=== PATIENT | male | born 1945 | race Caucasian/White ===

== ENCOUNTER 2021-02-17 14:16 | Inpatient (IN) | payer MEDICARE, SELFPAY, OTHER ==
[2021-02-17] MEDS ORDERED: ARICEPT 5MG TABL5 MG PO (15:27)
[2021-02-17] MEDS ORDERED: DEPO-PROVE150 MG/11 IM (15:28)
[2021-02-17 16:16] LABS: BILIRUBIN NEGATIVE (NEGATIVE); BLOOD TRACE-INTACT Ery/uL (NEGATIVE); CLARITY CLEAR (CLEAR); COLOR YELLOW (YELLOW); GLUCOSE (U) NORMAL (NORMAL); LEUKOCYTES NEGATIVE Leu/uL (NEGATIVE); NITRITE NEGATIVE (NEGATIVE); PROTEIN NEGATIVE (NEGATIVE); UROBILINOGEN 0.2 mg/dL (0.2-1.0)
[2021-02-17 16:27] LABS: CALCIUM OXALATE CRYSTALS TRACE; URINARY RBC RARE
[2021-02-17 16:40] LABS: BASOPHIL 0.3 % (0-2); EOSINOPHIL 0.1 % (0-7); HCT 46.5 % (42.0-52.0); HGB 16.6 g/dl (13.2-18.0); LYMPHOCYTE 3.8 % (15-48); MCH 31.4 pg (25.0-31.0); MCHC 35.7 g/dL (32.0-36.0); MCV 88.1 fL (78.0-100.0); MONOCYTE 9.1 % (0-12); NEUTROPHIL 86.2 % (41-80); NRBC 0; PLT 181 K/uL (150-400); RBC 5.28 M/uL (4.70-6.00); RDW 12.9 % (11.5-14.0); WBC 19.6 K/uL (4.0-10.5)
[2021-02-17 16:54] LABS: ALBUMIN 3.7 g/dL (3.4-5.0); BILIRUBIN - TOTAL 1.3 mg/dL (0.2-1.0); BUN/CREAT RATIO (CALC) 15.7 RATIO; CREATININE 0.7 mg/dL (0.67-1.17); GLOBULIN (CALCULATION) 3.5 g/dL; MAGNESIUM 1.7 mg/dL (1.8-2.4); TOTAL PROTEIN 7.2 g/dL (6.4-8.2)
[2021-02-18 07:26] LABS: BASOPHIL 0.6 % (0-2); EOSINOPHIL 1.8 % (0-7); HCT 48.8 % (42.0-52.0); HGB 16.8 g/dl (13.2-18.0); LYMPHOCYTE 10.9 % (15-48); MCH 30.9 pg (25.0-31.0); MCHC 34.4 g/dL (32.0-36.0); MCV 89.9 fL (78.0-100.0); MPV 12.4 fL (6.0-9.5); NEUTROPHIL 76.3 % (41-80); NRBC 0; PLT 142 K/uL (150-400); RBC 5.43 M/uL (4.70-6.00); RDW 13.2 % (11.5-14.0); WBC 14.3 K/uL (4.0-10.5)
[2021-02-18 07:38] LABS: BUN/CREAT RATIO (CALC) 16.7 RATIO; CREATININE 0.66 mg/dL (0.67-1.17)
[2021-02-18 07:41] LABS: INR 1.15 (0.9-1.2); PTT 33.1 SECONDS (22.2-34.7)
--- NOTE | 2021-02-18 15:21 | NUR ---
SPOKE WITH JAN BEDSPREAD INSPECTOR AND PADMINI - GRAVEL HAULER THIS DATE. ADVISED THAT PT IS HAVING SURGERY THIS DATE. PT RESIDES IN ASSISTED LIVING AT THE [facility] REQUESTED A BED IN THE PRISON. PER JAN AND PURVI - PT HAS SOME LEGAL ISSUES THAT MAY PREVENT HIM FROM BEING AROUND SOMEONE WHO IS UNDER THE AGE OF 18. JAN STATED THAT WE CAN SEND INFORMATION REGARDING THE REFERRAL AND THEY WILL CONSIDER THE REFERRAL. [facility] PHONE NUMBER IS [phone] FAX NUMBER IS [phone].
[2021-02-19 06:15] LABS: BASOPHIL 0.3 % (0-2); EOSINOPHIL 0 % (0-7); HCT 39.2 % (42.0-52.0); HGB 13.5 g/dl (13.2-18.0); LYMPHOCYTE 4.8 % (15-48); MCH 31.3 pg (25.0-31.0); MCHC 34.4 g/dL (32.0-36.0); MCV 90.7 fL (78.0-100.0); MONOCYTE 8.7 % (0-12); MPV 12.9 fL (6.0-9.5); NEUTROPHIL 85.1 % (41-80); NRBC 0; PLT 189 K/uL (150-400); RBC 4.32 M/uL (4.70-6.00); RDW 13.2 % (11.5-14.0)
[2021-02-19 06:30] LABS: WBC 30.3 K/uL (4.0-10.5)
[2021-02-19 06:42] LABS: BUN/CREAT RATIO (CALC) 17.7 RATIO; CREATININE 1.13 mg/dL (0.67-1.17); POTASSIUM 4.5 mmol/L (3.5-5.1)
--- NOTE | 2021-02-19 12:13 | NUR ---
MD NOTIFIED OF ELEVATED HR BETWEEN 105-120. PATIENT STATES NO PAIN EKG ORDERED. MD STATES NO TELE AT THIS TIME
--- NOTE | 2021-02-19 13:36 | NUR ---
02/19/21 Clinicals have been faxed to [facility].
--- NOTE | 2021-02-19 13:50 | NUR ---
MD NOTIFIED OF EKG RESULTS SINUS TACHY. PERCOCET 5/325 MG TAB PO GIVEN. PT UP IN CHAIR AT THIS TIME. MD NOTIFIED HR ELEVATED STILL, CBC ORDERED
[2021-02-19 14:12] LABS: HCT 36.4 % (42.0-52.0); HGB 12.3 g/dl (13.2-18.0); MCH 30.7 pg (25.0-31.0); MCHC 33.8 g/dL (32.0-36.0); MCV 90.8 fL (78.0-100.0); MPV 12.6 fL (6.0-9.5); RBC 4.01 M/uL (4.70-6.00); RDW 13.1 % (11.5-14.0); WBC 19.6 K/uL (4.0-10.5)
--- NOTE | 2021-02-19 16:21 | NUR ---
PT ASSISTED AND PIVOTED UP TO CHAIR 2 ASSIST. PT DENIES PAIN, YET RESTLESS, SQUIRMING, HR SLIGHTLY ELEVATED, GRIMACING. MORPHINE IV GIVEN AFTER PATIENT PLACED BACK IN BED, RESTING.
[2021-02-20 03:54] LABS: BASOPHIL 0.5 % (0-2); EOSINOPHIL 5.8 % (0-7); HCT 31.3 % (42.0-52.0); LYMPHOCYTE 11.7 % (15-48); MCH 31.4 pg (25.0-31.0); MCHC 35.1 g/dL (32.0-36.0); MCV 89.4 fL (78.0-100.0); MONOCYTE 10.5 % (0-12); MPV 12.5 fL (6.0-9.5); NRBC 0; PLT 133 K/uL (150-400); WBC 12.8 K/uL (4.0-10.5)
[2021-02-20 04:14] LABS: BUN/CREAT RATIO (CALC) 22.9 RATIO; CREATININE 0.7 mg/dL (0.67-1.17); POTASSIUM 3.6 mmol/L (3.5-5.1)
--- NOTE | 2021-02-20 21:11 | NUR ---
PT PULLED OUT SECOND IV TODAY. SPOKE WITH HOSPITALIST LETTY WHO STATED IT WAS OKAY TO LEAVE OUT PT'S IV AT THIS TIME.
--- NOTE | 2021-02-21 03:29 | NUR ---
PT HAS NOT VOIDED SINCE [employer] REMOVAL. RECEIVED ORDERS TO BLADDER SCAN PT AND STRAIGHT CATH. BLADDER SCAN SHOWED AMOUNT OF 426ML. STRAIGHT CATHED PT AND HAD AN OUTPUT OF 350ML. HOSPITALIST LETTY NOTIFIED
[2021-02-22 06:01] LABS: BASOPHIL 0.5 % (0-2); EOSINOPHIL 5.4 % (0-7); HCT 30.3 % (42.0-52.0); HGB 10.8 g/dl (13.2-18.0); LYMPHOCYTE 12.6 % (15-48); MCH 31.4 pg (25.0-31.0); MCHC 35.6 g/dL (32.0-36.0); MCV 88.1 fL (78.0-100.0); MONOCYTE 11.8 % (0-12); MPV 11.7 fL (6.0-9.5); NEUTROPHIL 68.8 % (41-80); NRBC 0; PLT 189 K/uL (150-400); RBC 3.44 M/uL (4.70-6.00); RDW 12.9 % (11.5-14.0); WBC 8.9 K/uL (4.0-10.5)
[2021-02-22 06:15] LABS: CREATININE 0.61 mg/dL (0.67-1.17)
--- NOTE | 2021-02-22 09:30 | NUR ---
02/22/21 [facility], will accept Mr. Ford today per Tabatha. Tabatha requested for any narcotic prescriptions to be faxed with the DS. Hard copies of narcotic prescriptions should be sent to the facility. They will take report after receiving the prescriptions and DS. Please fax DS to: [phone] and call report to: [phone]. Report given to MS DIANE Sandhu and Dr. Rodríguez.
[2021-02-22] MEDS ORDERED: PANTOPRAZOLE SO40 MG PO (12:49)
[2021-02-22] MEDS ORDERED: ONDANSETRON ODT4 MG PO (12:49)
[2021-02-22] MEDS ORDERED: ASPIRIN EC81 MG PO (12:49)
[2021-02-22] MEDS ORDERED: NORCO 5-325 TA1 EACH PO (12:49)
--- NOTE | 2021-02-22 15:40 | NUR ---
DEEP RETURNED TO PATIENT AND NEPHEW, ON FINGER AT THIS TIME
== END 2021-02-22 16:36 | DRG 522 ==
LOC: FMS 14:16
PROVIDERS: Orthopaedic Surgery; ADMIT Internal Medicine
PROC: 0SRB04A Replacement of Left Hip Joint with Ceramic on Polyethylene Synthetic Substitute, Uncemented, Open Approach (ICD-10-PCS; principal; 2021-02-18 16:00)
DX: S72.012A Unspecified intracapsular fracture of left femur, initial encounter for closed fracture (principal); F03.91 Unspecified dementia, unspecified severity, with behavioral disturbance; W18.39XA Other fall on same level, initial encounter; Y92.128 Other place in nursing home as the place of occurrence of the external cause; D72.829 Elevated white blood cell count, unspecified; Z20.822 Contact with and (suspected) exposure to COVID-19; I10 Essential (primary) hypertension; M19.90 Unspecified osteoarthritis, unspecified site; Z79.899 Other long term (current) drug therapy; Z79.82 Long term (current) use of aspirin; Z87.891 Personal history of nicotine dependence; Z80.9 Family history of malignant neoplasm, unspecified
CPT/HCPCS: 36415; 71045; 73501; 76000; 80048; 80053; 81001; 83735; 85025; 85610; 85730; 86850; 86900; 86901; 88305; 93005; 97162; 97166; 97530; 97530-GP; 97535; C1776; J0171; J0697; J1170; J1885; J2270; J2370; J2704; J2795; J3010; J3475; J7120; U0002